=== PATIENT | female | born 1985 | race Caucasian/White ===

== ENCOUNTER 2017-06-14 15:40 | Emergency (ER) | payer OTHER, BC ==
[2017-06-14 16:03] VITALS: BP 129/77
[2017-06-14] MEDS ORDERED: IBUPROFEN 800 MG TABLET PO ONE (17:21)
--- NOTE | 2017-06-14 17:22 | ER Document Report ---
HPI - HPI Patient complains to provider of: ankle swelling and ear bump Pain Level: 2 Context: Patient is a 31-year-old female presents emergency department with multiple complaints. Patient states that over the past couple of days she has noticed lateral swelling in her right ankle with pain standing and swelling at the end of the day. She states that she is taking only Benadryl because she thought it was a bug bite. She admits to some redness but denies any puncture break in the skin. She denies any pus, tenderness to light touch, heat. She also admits to a bump on her right ear that has been there for a couple of days. She admits to sinus congestion and cold symptoms for the past couple of days. She denies any fevers or chills. - REPRODUCTIVE Reproductive: DENIES: : Past Medical History - Social History Smoking Status: Smoker,Current Status Unk Family History: CAD, DM, Hyperlipidemia, Hypertension, Malignancy - Past Medical History Cardiac Medical History: Reports: Hx Hypercholesterolemia Denies: Hx Coronary Artery Disease, Hx Hypertension Pulmonary Medical History: Denies: Hx Asthma Endocrine Medical History: Denies: Hx Diabetes Mellitus Type 1, Hx Diabetes Mellitus Type 2 - Immunizations Immunizations up to date: No Hx Diphtheria, Pertussis, Tetanus Vaccination: Yes Vertical Provider Document - CONSTITUTIONAL Agree With Documented VS: Yes Notes: PHYSICAL EXAM GENERAL: Alert, interacts well. HEENT: NCAT, pale conjunctiva, extraocular movements intact, pupils PERRL. Right periauricular lymph node anterior to the right tragus that is soft and mobile without overlying erythema and no significant tenderness. External ear normal, no evidence of external auditory canal tenderness, blood/drainage, cerumen impaction, TM intact without evidence of effusion, bulging, injection, MMM, Uvula midline. Airway patent. No evidence of tonsillar enlargement, peritonsillar abscess, retropharyngeal abscess. LUNGS: Clear to auscultation bilaterally, no wheezes, rales, or rhonchi. No respiratory distress. HEART: Regular rate and rhythm. No murmurs, gallops, or rubs. ABDOMEN: Soft, nondistended, nontender. No guarding, rebound, or rigidity.. Bowel sounds present in all 4 quadrants. EXTREMITIES: Moves all 4 extremities spontaneously. Minimal soft tissue swelling of the right lateral ankle with minimal ecchymosis no significant deformity, pitting edema. dorsalis pedis pulses 2/4 bilaterally. No cyanosis. NEUROLOGICAL: Alert and oriented x4. Normal speech. PSYCH: Normal affect, normal mood. SKIN: Warm, dry, normal turgor. No rashes or lesions noted. - INFECTION CONTROL TRAVEL OUTSIDE OF THE [place] IN LAST 30 DAYS: No - RESPIRATORY O2 Sat by Pulse Oximetry: 100 Course - Re-evaluation Re-evalutation: 06/14/17 18:17 Patient is a 31-year-old female is hemodynamically stable, no acute distress and afebrile. Ear pump is consistent with lymphadenopathy around her right ear likely consistent with her upper respiratory infection. Regarding her ankle, no evidence of a septic joint, gout flare, dislocation, or fracture on exam and imaging. Vitals wnl. At this time, I do not see an indication for labs or further imaging. Will discharge with conservative measures, return precautions, and follow-up recommendations. - Vital Signs Vital signs: Temp Pulse Resp BP Pulse Ox 98.8 F 115 H 20 129/77 H 100 06/14/17 16:02 06/14/17 16:02 06/14/17 16:02 06/14/17 16:02 06/14/17 16:02 - Diagnostic Test Radiology reviewed: Image reviewed, Reports reviewed Discharge - Discharge Clinical Impression: Enlarged lymph node Ankle injury Qualifiers: Encounter type: initial encounter Laterality: right Qualified Code(s): S99.911A - Unspecified injury of right ankle, initial encounter Condition: Good Disposition: HOME, SELF-CARE Instructions: Lymphadenopathy ([facility]) Additional Instructions: Your x-ray does not show any acute fracture today. You likely have a ligamentous strain. You should continue to take anti-inflammatories such as ibuprofen 600 mg every 6 hours. Continue to apply ice to the area is much your able. Please follow-up with your primary care physician if you do not have improving your symptoms in the next 1-2 weeks. Please return immediately if you develop weakness, numbness, spreading redness from the area, or any other symptoms that are concerning to you. Referrals: RADHA PROCTOR MD [COMMUNITY BASED STAFF] - Follow up in 3-5 days
--- NOTE | 2017-06-14 17:59 | RADIOLOGY REPORT (SQ) ---
EXAM DESCRIPTION: ANKLE RIGHT COMPLETE COMPLETED DATE/TIME: 06/14/2017 5:50 pm REASON FOR STUDY: lateral ankle swelling COMPARISON: None. NUMBER OF VIEWS: Three views right ankle. LIMITATIONS: None. FINDINGS: Bones intact. Lateral soft tissue swelling. This is mild. No foreign body. OTHER: No other significant finding. IMPRESSION: Bones intact. Minimal soft tissue swelling. TECHNICAL DOCUMENTATION: JOB ID: [id number]
== END 2017-06-14 18:36 | disposition home or self-care (01) ==
LOC: ER 15:40
DX: S99.911A Unspecified injury of right ankle, initial encounter (principal); R59.9 Enlarged lymph nodes, unspecified; M79.89 Other specified soft tissue disorders; H92.01 Otalgia, right ear; R09.81 Nasal congestion; F17.200 Nicotine dependence, unspecified, uncomplicated; X58.XXXA Exposure to other specified factors, initial encounter
CPT/HCPCS: 99282

== ENCOUNTER 2019-11-14 12:55 | Emergency (ER) | payer SELFPAY ==
[2019-11-14 13:09] VITALS: BP 150/95
[2019-11-14] MEDS ORDERED: IBUPROFEN 600 MG TABLET PO ONE (14:27)
--- NOTE | 2019-11-14 14:33 | ER Document Report ---
HPI - HPI Patient complains to provider of: left hand pain Time Seen by Provider: 11/14/19 14:24 Pain Level: 4 Context: 34-year-old female with no previous medical problems presents to the emergency room complaining of pain and bruising to her left hand. Patient states she tripped and fell coming down the stairs 5 days ago injuring her left hand. Increasing pain, swelling, and bruising noted. No history of previous injuries to that hand. Patient is right-handed. Has been taking ibuprofen with minimal relief. But occasionally today for pain Associated Symptoms: None Exacerbated by: Movement Relieved by: Remaining still Similar symptoms previously: No Recently seen / treated by doctor: No - ROS Systems Reviewed and Negative: Yes All other systems reviewed and negative - NEURO Neurology: DENIES: Weakness - REPRODUCTIVE Reproductive: DENIES: : - MUSCULOSKELETAL Musculoskeletal: REPORTS: Extremity pain - left wrist/hand Past Medical History - General Information source: Patient - Social History Smoking Status: Never Smoker Chew tobacco use (# tins/day): No Frequency of alcohol use: Occasional Drug Abuse: None Family History: CAD, DM, Hyperlipidemia, Hypertension, Malignancy Patient has homicidal ideation: No - Past Medical History Cardiac Medical History: Reports: Hx Hypercholesterolemia Denies: Hx Coronary Artery Disease, Hx Hypertension Pulmonary Medical History: Denies: Hx Asthma Endocrine Medical History: Denies: Hx Diabetes Mellitus Type 1, Hx Diabetes Mellitus Type 2 Renal/ Medical History: Denies: Hx Peritoneal Dialysis - Immunizations Immunizations up to date: No Hx Diphtheria, Pertussis, Tetanus Vaccination: Yes Vertical Provider Document - CONSTITUTIONAL Agree With Documented VS: Yes Exam Limitations: No Limitations General Appearance: Mild Distress - INFECTION CONTROL TRAVEL OUTSIDE OF THE [place] IN LAST 30 DAYS: No - HEENT HEENT: Atraumatic, Normocephalic - NECK Neck: Normal Inspection, Supple - RESPIRATORY Respiratory: Breath Sounds Normal, No Respiratory Distress - CARDIOVASCULAR Cardiovascular: Regular Rate, Regular Rhythm, No Murmur - MUSCULOSKELETAL/EXTREMETIES Musculoskeletal/Extremeties: FROM, Tender - Tenderness and swelling noted to l eft hand. There is ecchymosis noted over the palmar aspect of the left hand - NEURO Level of Consciousness: Awake, Alert, Appropriate Motor/Sensory: No Motor Deficit, No Sensory Deficit Notes: Positive left radial pulse. Capillary refill less than 3 seconds. Course - Re-evaluation Re-evalutation: 11/14/19 15:08 Patient is resting comfortably with decreased pain. Reviewed x-ray results with patient. Counseled to continue with Tylenol and or Motrin as needed for pain. Outpatient follow-up with orthopedics if pain is persistent for the next 2 to 3 days. Patient was given strict return to the emergency room guidelines. Return for any new or worsening symptoms. All questions were answered. Patient verbalized understanding and agrees with plan of care. - Vital Signs Vital signs: Temp Pulse Resp BP Pulse Ox 97.9 F 77 20 150/95 H 100 11/14/19 13:07 11/14/19 13:07 11/14/19 13:07 11/14/19 13:07 11/14/19 13:07 - Diagnostic Test Radiology reviewed: Reports reviewed Discharge - Discharge Clinical Impression: Contusion of left hand Qualifiers: Encounter type: initial encounter Qualified Code(s): S60.222A - Contusion of left hand, initial encounter Condition: Stable Disposition: HOME, SELF-CARE Instructions: Contusion ([facility]) Additional Instructions: Can use ice 20 minutes 3 times a day. Continue with Tylenol and Motrin as needed for pain. Outpatient follow-up with orthopedics if pain persist for the next 2 to 3 days. Return to emergency room for any new or worsening symptoms. Referrals: VENICE ILN DO [ACTIVE STAFF] - Follow up as needed
--- NOTE | 2019-11-14 15:06 | RADIOLOGY REPORT (SQ) ---
EXAM DESCRIPTION: HAND LEFT 3 VIEWS IMAGES COMPLETED DATE/TIME: 11/14/2019 2:55 pm REASON FOR STUDY: injury COMPARISON: None. EXAM PARAMETERS: NUMBER OF VIEWS: Three views. TECHNIQUE: AP, lateral and oblique radiographic images acquired of the left hand. LIMITATIONS: None. FINDINGS: MINERALIZATION: Normal. BONES: No acute fracture or dislocation. No worrisome bone lesions. JOINTS: No effusions. SOFT TISSUES: No soft tissue swelling. No foreign body. OTHER: No other significant finding. IMPRESSION: NEGATIVE STUDY OF THE LEFT HAND. NO RADIOGRAPHIC EVIDENCE OF ACUTE INJURY. TECHNICAL DOCUMENTATION: JOB ID: [id number] 2010 [employer]- All Rights Reserved Reading location - IP/workstation name: [email or web address]
== END 2019-11-14 15:11 | disposition home or self-care (01) ==
LOC: ER 12:55
DX: S60.222A Contusion of left hand, initial encounter (principal); W10.9XXA Fall (on) (from) unspecified stairs and steps, initial encounter; E78.00 Pure hypercholesterolemia, unspecified
CPT/HCPCS: 99283